=== PATIENT | female | born 1975 | race Two or more races ===

== ENCOUNTER 2016-09-14 21:03 | Emergency (ER) | payer MEDICARE, OTHER ==
[~2016-09-14] VITALS: Ht 165.1 cm; Wt 108.9 kg
--- NOTE | ~2016-09-14 | CT4 ---
[facility] A Service of [facility] & [facility] RADIOLOGY TEXT RESULTS PATIENT: LESLIE HEARD LOCATION: SED : 77 UNIT #: [id number] AGE: [address]: Royal Omer MD SEX: F ORDER DR: [id number] [address] [address] [id number] MR#: [id number] Acc #: [id number] NAME: LESLIE HEARD : 1975 SEX: F STUDY DATE/TIME: 09/14/2016 23:24 UNIT: SED ROOM: STUDY DESCRIPTION: CT Abd and Pelv Wo Cont Attending Physician: Royal Omer M.D. Ordering Physician: Royal Omer M.D. Primary Care Physician: [facility] IMAGING REPORT This report is preliminary unless electronic signature is present. EXAM CT abdomen and pelvis, 09/14/2016 HISTORY Weak, pain around abdomen, flank pain and pain with urination x3 days. Left flank pain. TECHNIQUE This CT exam was performed with one or more of the following radiation dose reduction techniques: automatic exposure control, adjustment of mA and/or kV according to patient size, and iterative reconstruction. FINDINGS CT abdomen and pelvis performed without administration of oral or intravenous contrast. Comparison 01/20/2016. Subpleural linear scarring or fibrotic change in the periphery of the lung bases. This is mild in degree. There is no evidence of acute basilar pulmonary disease. The heart is upper limits of normal in size. Liver, gallbladder, spleen, pancreas, and adrenal glands notable for a stable approximately 1.4 cm left adrenal adenoma. The kidneys show no hydronephrosis or nephrolithiasis. No perinephric inflammatory change. No indication of renal cystic or solid mass lesion. No ureteral calculi or evidence of recent stone passage. CT PELVIS: No inguinal adenopathy. Urinary bladder is unremarkable. Uterus unremarkable. Small right adnexal calcification, unchanged. The left ovary contains 3 cysts. The largest measures up to about 2.2 cm in diameter. More inferiorly there is a 1.6 cm cyst and a 1.9 cm cyst. These are presumed physiologic in nature. Given the multiplicity of these cysts and the size of the dominant 2.2 cm cyst, I would recommend 6-week ultrasound followup to confirm decreasing size or resolution. No inflammatory change in the pelvis. There may be a minimal trace amount of STS. [facility] A Service of [facility] RADIOLOGY TEXT RESULTS PATIENT: LESLIE HEARD LOCATION: SED : [birth year] UNIT #: [id number] AGE: [address]: Royal Omer MD SEX: F ORDER DR: free fluid the cul-de-sac. There is certainly no drainable fluid collection. There is no pelvic or retroperitoneal adenopathy. The distal esophagus, stomach, small bowel are unremarkable. The appendix is normal. Colon normal. Unopacified vascular structures remarkable. Bony structures show no acute abnormality. IMPRESSION 1. No renal calculi or obstruction. No acute renal findings. 2. Three cystic structures in the left ovary measuring between 1.6 cm and 2.2 cm. Favored to represent physiologic ovarian cysts. Given the patient's age and multiplicity of the left ovarian cysts, I would recommend followup ultrasound in 6 weeks when the patient should be at a different phase of the menstrual cycle to confirm decreasing size or resolution of the left ovarian cysts. 3. There may be a trace amount of free fluid in the cul-de-sac. There is no drainable fluid collection. 4. Gallbladder, pancreas, appendix normal. 5. Minimal subpleural linear scarring/fibrotic change or atelectasis in the lung bases. No evidence of acute infectious or inflammatory disease at lung bases. Heart upper limits of normal in size. Dictated by... Reynaldo Rodriguez M.D. THIS IS AN ELECTRONICALLY VERIFIED REPORT Reynaldo Rodriguez M.D. at 09/16/2016 1:22 PM KANCHAN/isabella TD: 09/15/2016 02:12 JOB #: [id number] MEDICAL IMAGING REPORT Page 1 of 1
[~2016-09-14 21:03] MED LIST: ALBUTEROL17 GM INH; ALPRAZOLAM PO; AMBIEN10 MG PO; AMOXICILLIN500 M1 PO; AMOXIL500 MG PO; ANUSOL30 GM EXT; BACTRIM DS TABL1 TA1 PO; BACTRIM DS TABL1 TA2 PO; BACTRIM DS TABL1 TAB PO; BACTROBAN22 GM TOP; BACTROBAN22 GM TP; BENADRYL25 M3 PO; BENADRYL25 MG PO; CELEXA20 MG PO; CIPRO PO; CLARITHROMYCIN500 MG PO; DETROL PO; DIAZEPAM PO; DOCU SOFT100 M1 PO; ERYTHROMYCIN O3.5 GM PO; FAMOTIDINE PO; FLEXERIL PO; FLEXERIL10 MG PO; GLUCOPHAGE500 M1 PO; GLUCOPHAGE500 MG PO; HYDROCORTISONE30 G3 TP; IBUPROFEN PO; INDERAL20 MG DOB; INDERAL20 MG PO; KEFLEX500 MG PO; LEVAQUIN250 MG PO; LIPITOR20 MG PO; LORTAB 5/500 TA1 TA1 PO; LORTAB 7.5-5001 TAB PO; MACROBID100 MG PO; MELATONIN1 M1 SL; MELATONIN1 MG PO; MELATONIN3 M1 PO; METFORMIN HCL500 M1 PO; METFORMIN HCL500 M2 PO; METRONIDAZOLE PO; MINIPRESS1 MG PO; MOTRIN600 M1 PO; NAPROSYN-EC500 M1 PO; NAPROSYN500 MG PO; OMEPRAZOLE40 M1 PO; PEPCID AC20 M2 PO; PHENERGAN PO; PHENERGAN PR; PHENERGAN25 MG PO; PHENTERMINE H37.5 M1 PO; POLYMYXIN B/TMP10 M1 OT; PRAVACHOL20 MG PO; PREDNISOLONE5 MG PO; PREDNISONE PO; PREDNISONE10 MG PO; PRILOSEC40 MG PO; PROPRANOLOL HCL20 MG PO; PROTONIX PO; PYRIDIUM PO; RANITIDINE HCL150 M1 PO; SEROQUEL50 M1 PO; SEROQUEL50 MG PO; SERTRALINE HCL50 M1 PO; TMP-POLYMYXIN B10 ML OP; TYLENOL325 M1 PO; ULTRAM PO; VICODIN 5/500 T1 TAB PO; VICODIN PO; VITAL-D RX TABL1 TAB PO; VITAMIN B-12500 MCG PO; ZANTAC150 M1 PO; ZOFRAN ODT4 MG/UDTAB PO; ZOFRAN PO; ZOLOFT PO
[2016-09-14 21:30] LABS: URINE SOURCE CLEAN CATCH
[2016-09-14 21:35] LABS: URINE APPEARANCE CLEAR; URINE BILIRUBIN NEG (NEG); URINE BLOOD 1+ (NEG); URINE COLOR YELLOW; URINE GLUCOSE NEG (NORM); URINE KETONE NEG (NEG); URINE LEUKOCYTE ESTERASE 1+ (NEG); URINE NITRATE NEG (NEG); URINE PROTEIN NEG (NEG); URINE SPECIFIC GRAVITY 1.015 (1.003-1.035); URINE UROBILINOGEN 0.2 MG/DL (NORM)
[2016-09-14 21:36] LABS: MICRO INDICATED? YES
[2016-09-14 21:37] LABS: CULTURE INDICATED? YES; URINE BACTERIA 1+ (NEG); URINE MUCUS PRESENT; URINE SQUAMOUS EPITHELIAL CELL MANY /[HPF]; URINE WBC 25-50 /[HPF] (0-5)
[2016-09-14 22:37] LABS: BASOPHIL% 0.4 % (0-2.5); EOSINOPHIL# 0.3 X10e3 (0-0.7); EOSINOPHIL% 2.4 % (0.0-7.0); HEMATOCRIT 37.4 % (35.0-45.0); HEMOGLOBIN 12.5 gm/dL (12.0-16.0); LYMPHOCYTE# 2.2 X10e3 (1.0-3.5); LYMPHOCYTE% 20.1 % (17.0-45.0); MEAN CELL VOLUME 87.6 FL (83-96); MEAN CORPUSCULAR HEMOGLOBIN 29.4 PG (28-34); MEAN CORPUSCULAR HGB CONC 33.5 g/dL (30-36); MEAN PLATELET VOLUME 7.8 FL (6.5-11.5); MONOCYTE# 0.7 X10e3 (0-1.0); MONOCYTE% 6.6 % (3.0-12.0); NEUTROPHIL# 7.9 X10e3 (1.5-7.1); NEUTROPHIL% 70.5 % (40-75); PLATELET COUNT 347 X10e3 (140-420); RED BLOOD COUNT 4.27 X10e (3.90-5.30); WHITE BLOOD COUNT 11.2 X10e3 (4.0-10.5)
[2016-09-14 22:38] LABS: DIFF IND NO
[2016-09-14 22:49] LABS: ALBUMIN SERUM 3.8 g/dL (3.5-5.0); BILIRUBIN,TOTAL 0.4 mg/dL (0.2-2.0); CALCIUM SERUM 8.8 mg/dL (8.4-10.2); CREATININE SERUM 0.6 mg/dL (0.6-1.4); GLOM FILT RATE Estimated 114.8 mL/min (>60); PROTEIN TOTAL SERUM 7.6 g/dL (6.0-8.3)
[2016-09-15] MEDS ORDERED: CIPRO PO (00:23)
[2016-09-15] MEDS ORDERED: MOTRIN600 M2 PO (00:24)
[2016-09-15] MEDS ORDERED: ZOFRAN PO (00:24)
== END 2016-09-15 00:31 | disposition home or self-care (01) ==
LOC: SED 21:03
DX: N39.0 Urinary tract infection, site not specified (principal); E11.9 Type 2 diabetes mellitus without complications; E78.5 Hyperlipidemia, unspecified; F32.9 Major depressive disorder, single episode, unspecified; K21.9 Gastro-esophageal reflux disease without esophagitis; F17.200 Nicotine dependence, unspecified, uncomplicated; Z79.899 Other long term (current) drug therapy
CPT/HCPCS: 36415; 74176; 80053; 81003; 84703; 85025; 87086; 96361; 96374; 96375; 99284; J0696; J2270; J2405

== ENCOUNTER 2016-09-21 22:31 | Emergency (ER) | payer MEDICARE, OTHER ==
[~2016-09-21] VITALS: Ht 165.1 cm; Wt 108.9 kg
[~2016-09-21 22:31] MED LIST changes: +MOTRIN600 M2 PO
[2016-09-22 01:13] LABS: BASOPHIL% 0.3 % (0-2.5); EOSINOPHIL# 0.3 X10e3 (0-0.7); EOSINOPHIL% 2.8 % (0.0-7.0); HEMATOCRIT 37.5 % (35.0-45.0); HEMOGLOBIN 12.6 gm/dL (12.0-16.0); LYMPHOCYTE# 2.9 X10e3 (1.0-3.5); LYMPHOCYTE% 25.4 % (17.0-45.0); MEAN CELL VOLUME 87.3 FL (83-96); MEAN CORPUSCULAR HEMOGLOBIN 29.2 PG (28-34); MEAN CORPUSCULAR HGB CONC 33.5 g/dL (30-36); MEAN PLATELET VOLUME 8.6 FL (6.5-11.5); MONOCYTE# 0.9 X10e3 (0-1.0); NEUTROPHIL# 7.3 X10e3 (1.5-7.1); NEUTROPHIL% 63.5 % (40-75); PLATELET COUNT 355 X10e3 (140-420); RED CELL DISTRIBUTION WIDTH 13.8 % (11.0-15.5); WHITE BLOOD COUNT 11.5 X10e3 (4.0-10.5)
[2016-09-22 01:16] LABS: DIFF IND NO
[2016-09-22 01:22] LABS: URINE SOURCE CLEAN CATCH
[2016-09-22 01:24] LABS: URINE APPEARANCE CLEAR; URINE BILIRUBIN NEG (NEG); URINE BLOOD TRACE-INTACT (NEG); URINE COLOR YELLOW; URINE GLUCOSE NEG (NORM); URINE KETONE NEG (NEG); URINE LEUKOCYTE ESTERASE 1+ (NEG); URINE NITRATE NEG (NEG); URINE PH 5.5 (5-8); URINE PROTEIN NEG (NEG); URINE UROBILINOGEN 0.2 MG/DL (NORM)
[2016-09-22 01:25] LABS: MICRO INDICATED? YES
[2016-09-22 01:25] LABS: BUN/CREATININE RATIO 11.11; CALCIUM SERUM 8.6 mg/dL (8.4-10.2); CREATININE SERUM 0.9 mg/dL (0.6-1.4); GLOM FILT RATE Estimated 80.6 mL/min (>60)
[2016-09-22 01:27] LABS: CULTURE INDICATED? YES; URINE BACTERIA 1+ (NEG); URINE SQUAMOUS EPITHELIAL CELL OCCAS /[HPF]; URINE TRANSITIONAL EPI CELLS FEW /[HPF]
[2016-09-24 10:32] LABS: CHLAMYDIA TRACH Not Detected (Not Detected); N GONOR Not Detected (Not Detected)
== END 2016-09-22 02:33 | disposition home or self-care (01) ==
LOC: SED 22:31
PROVIDERS: Physician Assistant
DX: N39.0 Urinary tract infection, site not specified (principal); K21.9 Gastro-esophageal reflux disease without esophagitis; I10 Essential (primary) hypertension; E78.5 Hyperlipidemia, unspecified; F17.200 Nicotine dependence, unspecified, uncomplicated; Z98.890 Other specified postprocedural states; Z79.899 Other long term (current) drug therapy
CPT/HCPCS: 36415; 80048; 81003; 84703; 85025; 87086; 87210; 87491; 87591; 87808; 87905; 96374; 99284; J1885